=== PATIENT | female | born 1955 | race Caucasian/White ===

== ENCOUNTER 2018-08-28 09:01 | Emergency (ER) | payer BC ==
[2018-08-28 09:11] VITALS: TEMP 98.3; BMI 29.8
--- NOTE | 2018-08-28 09:16 | PDOC ---
History of Present Illness - General Chief Complaint: Chest Pain Stated Complaint: CHEST PRESSURE / PAIN Time Seen by Provider: 08/28/18 09:15 History Source: Patient Exam Limitations: No Limitations - History of Present Illness Initial Comments: Pt is a 63 yo F, with PMHpresenting with complaints of intermittent chest pain since yesterday afternoon. Pt states she has a "squeezing chest pressure" in the middle of her chest while she was walking in the house doing errands yesterday afternoon. The pain radiated to her L shoulder and towards both jaws up her neck. The episode was associated with diaphoresis but no nausea or vomiting. The pain resolved when she was lying down to rest. The pain returned this AM when she was lifting something at work. Pt took no medications prior to arrival, and stopped taking her statin medication 3 weeks ago when she went to and they told the pt her lipid levels were normal. Pt also endorses orthopnea over the past month, and she wakes up during the night having to prop herself up on pillows. Pt denies any recent fevers/chills, headache, vision changes, syncope, palpitations, nausea/vomiting, abdominal pain, urinary symptoms, diarrhea/constipation, or leg swelling. Social: Pt denies any cigarette, alcohol, or drug use. Flight to 3 weeks ago, no other sick contacts. Surgical: no relevant history. Family: no relevant history. 08/28/18 13:46 Past History - Travel Traveled outside of the country in the last 30 days: No Close contact w/someone who was outside of country & ill: No - Past Medical History Allergies/Adverse Reactions: Allergies Allergy/AdvReac Type Severity Reaction Status Date / Time aspirin Allergy Verified 10/09/15 14:39 Home Medications: Ambulatory Orders Atorvastatin Ca [Lipitor] 0 mg PO HS 08/28/18 Levothyroxine Sodium [Synthroid] 0 mcg PO DAILY 08/28/18 COPD: No Hypercholesterolemia: Yes Thyroid Disease: Yes Other medical history: SCOLIOSIS - Surgical History GI Surgery: No - Suicide/Smoking/Psychosocial Hx Smoking Status: No Smoking History: Never smoked Have you smoked in the past 12 months: No Number of Cigarettes Smoked Daily: 0 Information on smoking cessation initiated: No Hx Alcohol Use: No Drug/Substance Use Hx: No Review of Systems - Review of Systems Able to Perform ROS?: Yes Is the patient limited Georgian proficient: No Constitutional: Yes: Weight Stable. No: Chills, Diaphoresis, Fever, Loss of Appetite, Malaise HEENTM: No: Blurred Vision, Double Vision, Nose Pain, Nose Congestion, Throat Pain, Difficulty Swallowing Respiratory: Yes: Orthopnea, Shortness of Breath, SOB with Exertion. No: Cough , SOB at Rest, Wheezing, Productive cough, Hemoptysis Cardiac (ROS): Yes: See HPI, Chest Pain. No: Edema, Irregular Heart Rate, Lightheadedness, Palpitations, Syncope, Chest Tightness ABD/GI: No: Constipated, Diarrhea, Nausea, Poor Appetite, Poor Fluid Intake, Vomiting, Indigestion, Abdominal cramping : No: Burning, Dysuria, Pain, Urgency Musculoskeletal: No: Back Pain, Joint Pain Integumentary: Yes: Sweating (diaphoresis associated with chest pain). No: Rash Neurological: No: Headache, Numbness, Paresthesia, Weakness, Unsteady Gait, Dizziness Psychiatric: No: Sleep Pattern Change, Change in Appetite Endocrine: No: Increased Urine, Change in Weight Hematologic/Lymphatic: No: Anemia, Blood Clots, Easy Bleeding, Easy Bruising All Other Systems: Reviewed and Negative *Physical Exam - Vital Signs Last Vital Signs Temp Pulse Resp BP Pulse Ox 98.3 F 66 16 133/82 97 08/28/18 09:09 08/28/18 09:09 08/28/18 09:09 08/28/18 09:09 08/28/18 09:09 - Physical Exam Comments: Vitals stable, pt afebrile, O2 97% on RA. Pt in NAD, normal body habitus. Pt alert and oriented x3. precinct captain generally intact, muscular strength and sensation intact. Head normocephalic, atraumatic. Eyes PERRLA, EOMI. Oropharynx without erythema or exudates, no LAD b/l. No nasal congestion, hearing intact. Clear heart sounds, S1/S2, no JVD, b/l pedal edema, or heart murmur. No reproducible chest wall tenderness on exam. Clear lung sounds, no respiratory distress, wheezes, crackles, or accessory muscle use. No abdominal or CVA tenderness to palpation, no rebound, no guarding. Abdomen soft, non-distended, and with normoactive bowel sounds. Skin without jaundice or rash. 08/28/18 09:20 Heart Score/ECG Review - History History: Highly suspicious - Electrocardiogram EKG: Normal - Age Age: 45-65 - Risk Factors Risk Factors Heart Score: Yes Hx Hypercholesterolemia Based on the list above the patient has:: 1-2 risk factors - Troponin Troponin: 1-3x normal limit - Score Heart Score - Total: 5 ED Treatment Course - LABORATORY CBC & Chemistry Diagram: 08/28/18 09:50 08/28/18 09:50 Medical Decision Making - Critical Care Time Total Critical Care Time (minutes): 45 (N-stemi, heparin) Critical Care Statement: The care of this patient involved high complexity decision making to prevent further life threatening deterioration of the patient 's condition and/or to evaluate & treat vital organ system(s) failure or risk of failure. - Medical Decision Making Pt was seen at bedside, also will be seen by attending Dr. Chavira. Pt presenting with complaints of intermittent chest pain since yesterday afternoon. Pt states she has a "squeezing chest pressure" in the middle of her chest while she was walking in the house doing errands yesterday afternoon. The pain radiated to her L shoulder and towards both jaws up her neck. The episode was associated with diaphoresis but no nausea or vomiting. The pain resolved when she was lying down to rest. The pain returned this AM when she was lifting something at work. Pt took no medications prior to arrival, and stopped taking her statin medication 3 weeks ago when she went to and they told the pt her lipid levels were normal. Pt also endorses orthopnea over the past month, and she wakes up during the night having to prop herself up on pillows. Pt denies any recent fevers/chills, headache, vision changes, syncope, palpitations, nausea/vomiting, abdominal pain, urinary symptoms, diarrhea/constipation, or leg swelling. Pt traveled from [facility] 3 weeks ago, but has had no recent LE swelling, no estrogen use, and no recent surgeries. Considering stable angina vs ACS vs PE vs pneumonia/bronchitis Ordered work-up including CBC, CMP, coags, D-dimer, cardiac profile, . Pt denying pain control measures at this time. Will continue to reassess pt and monitor for symptomatic improvement. ECG: NSR, intervals WNL (HR 68, NH 152, QRS 82, QTc 399). No TWIs or significant ST segment changes. No prior ECG for comparison. Will send guaic test. Started 325 mg PO aspirin and heparin infusion. Paging Dr. Encarnacion team for admission. Paged [facility] cardio team for consult (Dr. Greco principal research economist). 08/28/18 11:04 Pt having active chest pain in the ER, provided 0.4 mg SL NG. Pt admitted to telemetry under Dr. Encarnacion team. New ECG showed biphasic changes to V2-V4, paged Dr. Greco with ECG information, who suggested transferring to [facility] considering dynamic changes. Pt will be transferred to [facility] cardiology unit under Dr. Greco. 08/28/18 12:06 Chest pain resolved with SL NG. 08/28/18 12:56 Providing 650 mg PO tylenol for headache after NG. Estimated arrival for ACLS team transfer to [facility] is 1415. 08/28/18 13:39 Second troponin elevated from 0.[address] Greco contacted. Pending transport. 08/28/18 13:55 Pt provided 180 mg po brilinta for anti-platelet. EMS team arrived for pt. BP stable 130/80, pt lying comfortably. 08/28/18 14:20 *DC/Admit/Observation/Transfer Diagnosis at time of Disposition: NSTEMI (non-ST elevated myocardial infarction) - Discharge Dispostion Disposition: TRANSFER ACUTE CARE/OTHER HOSP Condition at time of disposition: Stable Decision to Admit order: No - Referrals Referrals: Gustabo Greco MD [Staff Physician] - - Patient Instructions - Post Discharge Activity
--- NOTE | 2018-08-28 09:44 | PDOC ---
Attending Attestation - HPI HPI: 08/28/18 10:34 The patient is a 63 year old female, with a significant past medical history of HLD, who presents to the emergency department with, 2 episodes of midsternal, pressure-like chest pain with associated diaphoresis radiation to the left shoulder and bilateral neck, alleviated with rest. Patient notes her first episode to be yesterday while doing daily home activities and second episode while at work after a stressful situation she attempted to lift a box and symptoms repeated, prompting her arrival to the ED. Patient endorses an associated 1 month of shortness of breath at nighttime. Patients last stress test was approximately 5 years ago. She denies recent fevers, chills, headache or dizziness. She denies recent diarrhea or constipation. She denies recent dysuria, frequency, urgency or hematuria. Allergies: Aspirin. Past surgical history: None reported. Social history: Nonsmoker. Denies EtOH use and recreational drug use. Primary Care Physician: Dr. Encarnacion Documentation prepared by Rabia Szymanski, acting as medical receptionist biller for Kaya Chavira MD. - Medical Decision Making 10:50am Call placed to Dr. 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 11:07am Call placed to [facility], awaiting call back from Dr. Greco. <Rabia Szymanski - Last Filed: 08/28/18 11:06> - Resident Resident Name: SalenaSanaz - ED Attending Attestation I have performed the following: I have examined & evaluated the patient, The case was reviewed & discussed with the resident, I agree w/resident's findings & plan, Exceptions are as noted - Physicial Exam PE: 08/28/18 09:56 awake alert lungs clear bilaterally heart rrr no mrg abd soft nt nd ext wwp no edema. no calf tenderness. alert oriented x 3 - Medical Decision Making 08/28/18 09:57 63 yo F h/o HLD on statin here with /co chest pain. h/o normal stress 5 yrs ago. no fam h/x of cad. no h/o tobacco use. differential angina, chf, anemia, plan labs ekg cxr trop. saritha ovalle require admission for r/o acs due to suspicious story for acs. 08/28/18 11:37 pt with mild elevated trop, repeat ekg ordered. focused ED ultrasound TTE, indication r/o PE four views of heart obtained, mild rv dilation close to 1:1 of LV no rv hypomotility. overall good contractility no pericardial effusion. impression: mild rv dilation, overall no noted rv hypocontractility. normal lv contractility. no pericardial effusion bilat lower ext doppler indication: recent travel, positive trop r/o pe bilat legs scanned from common femoral v loretta past bifurcation into superficial and deep femoral vein. popliteal v. scanned bilaterally past trifucation. no visible throbmus, full compressibility at all sites. impression: no proximal DVT bilat lower extremeties. recommend repeat in 5 - 7 days. d/w cardiology re/ positive troponin. pt started on heparain with bolus. given asa. 08/28/18 12:14 repeat ekg with concerns for dynamic changes, wells type biphasic t waves in septal leads. pt developed recurrent chest pain. d/w heel breaster. Gustabo Gomez. ekg faxed. agrees with transfer to [facility]. <Kaya Chavira - Last Filed: 08/28/18 12:15> Heart Score/ECG Review - History History: Highly suspicious - Electrocardiogram EKG: Normal - Risk Factors Risk Factors Heart Score: Yes Hx Hypercholesterolemia #1 General ECG Interpretation: Sinus Rhythm (68), Normal Rate, Normal Intervals, No acute ischemic changes <Kaya Chavira - Last Filed: 08/28/18 12:15>
[2018-08-28 10:14] LABS: BASO % 1.2 % (0-2.0); EOS % 2.9 % (0-4.5); HEMATOCRIT 38.8 % (32.4-45.2); HEMOGLOBIN 13.1 GM/dL (10.7-15.3); LYMPH % 29.1 % (8-40); MCH 28.5 pg (25.7-33.7); MCHC 33.8 g/dl (32.0-36.0); MEAN CELL VOLUME 84.6 fl (80-96); MEAN PLT VOLUME 8.3 fl (7.5-11.1); MONO % 10.4 % (3.8-10.2); NEUT % 56.4 % (42.8-82.8); PLATELET COUNT 356 K/MM3 (134-434); RBC 4.59 M/mm3 (3.60-5.2); RDW 13.7 % (11.6-15.6)
[2018-08-28 10:25] LABS: INR 1.1 (0.83-1.09)
[2018-08-28 10:41] LABS: ALBUMIN 3.7 g/dl (3.4-5.0); ALK PHOS 63 U/L (45-117); ANION GAP 4 MMOL/L (8-16); BILIRUBIN,TOTAL 0.2 mg/dL (0.2-1); BLOOD UREA NITROGEN 18 mg/dL (7-18); CALCIUM 9.1 mg/dL (8.5-10.1); CHLORIDE 107 mmol/L (98-107); CO2 29 mmol/L (21-32); GLUCOSE,RANDOM 88 mg/dL (74-106); N-TERMINAL BNP 221.1 pg/ml (5-125); POTASSIUM 4.3 mmol/L (3.5-5.1); SGOT/AST 21 U/L (15-37); SGPT/ALT 20 U/L (13-61); SODIUM 140 mmol/L (136-145); TOT PROT 7.1 g/dl (6.4-8.2)
[2018-08-28] MEDS ORDERED: ASPIRIN 325 MG TABLET PO ONE (10:44)
[2018-08-28] MEDS ORDERED: ASPIRIN 325 MG TABLET ONE (10:48)
[2018-08-28] MEDS ORDERED: HEPARIN NA (PORCINE) 5,000 UNITS/ML 1ML VIAL IVPUSH PRN ×2 (10:51)
[2018-08-28] MEDS ORDERED: HEPARIN IV SCH (11:00)
[2018-08-28] MEDS ORDERED: HEPARIN NA (PORCINE) 5,000 UNITS/ML 1ML VIAL ONE (11:00)
[2018-08-28] MEDS ORDERED: HEPARIN INFUSION - 25,000 UNITS/500 ML INFUS.BAG IVPB ONE (11:00)
[2018-08-28] MEDS ORDERED: SODIUM CHLORIDE IV SCH (11:00)
[2018-08-28] MEDS ORDERED: NITROGLYCERIN SUBLINGUAL 1/150 0.4 MG TAB SL PRN (11:50)
[2018-08-28] MEDS ORDERED: ACETAMINOPHEN 325 MG TABLET (FP) PO PRN (11:50)
[2018-08-28] MEDS ORDERED: ACETAMINOPHEN 325 MG TABLET (FP) PO ONE (13:31)
[2018-08-28] MEDS ORDERED: ACETAMINOPHEN 325 MG TABLET (FP) ONE (13:40)
[2018-08-28 13:44] LABS: MAGNESIUM 2.4 mg/dL (1.8-2.4)
[2018-08-28] MEDS ORDERED: CLOPIDOGREL BISULFATE 300 MG TABLET PO ONE (14:12)
[2018-08-28] MEDS ORDERED: TICAGRELOR 90 MG TABLET PO ONE ×2 (14:15→14:18)
[2018-08-28 14:20] VITALS: BP 130/77; PULSE 75
[2018-08-29] MEDS ORDERED: PANTOPRAZOLE 40 MG TABLET (FP) PO SCH (10:00)
--- NOTE | 2018-08-30 10:35 | EKG ---
Test Reason : Blood Pressure : / mmHG Vent. Rate : 058 BPM Atrial Rate : 058 BPM P-R Int : 158 ms QRS Dur : 084 ms QT Int : 440 ms P-R-T Axes : 032 023 055 degrees QTc Int : 431 ms SINUS BRADYCARDIA NONSPECIFIC T WAVE ABNORMALITY ABNORMAL ECG NO PREVIOUS ECGS AVAILABLE Confirmed by EVERETT CHICAS MD ([id number]) on 08/30/2018 10:35:14 AM Referred By: Confirmed By:EVERETT CHICAS MD
--- NOTE | 2018-08-30 10:36 | EKG ---
Test Reason : Blood Pressure : / mmHG Vent. Rate : 066 BPM Atrial Rate : 066 BPM P-R Int : 166 ms QRS Dur : 082 ms QT Int : 422 ms P-R-T Axes : 058 016 046 degrees QTc Int : 442 ms NORMAL SINUS RHYTHM NONSPECIFIC ST AND T WAVE ABNORMALITY WHEN COMPARED WITH ECG OF 28-AUG-2018 11:29, NO SIGNIFICANT CHANGE WAS FOUND Confirmed by LIV MALDONADO MD ([id number]) on 08/30/2018 10:36:43 AM Referred By: Confirmed By:LIV MALDONADO MD
--- NOTE | 2018-08-30 10:39 | EKG ---
Test Reason : Blood Pressure : / mmHG Vent. Rate : 068 BPM Atrial Rate : 068 BPM P-R Int : 152 ms QRS Dur : 082 ms QT Int : 376 ms P-R-T Axes : 059 040 048 degrees QTc Int : 399 ms NORMAL SINUS RHYTHM POSSIBLE LEFT ATRIAL ENLARGEMENT NONSPECIFIC ST ABNORMALITY BORDERLINE ECG NO PREVIOUS ECGS AVAILABLE Confirmed by LIV MALDONADO MD ([id number]) on 08/30/2018 10:39:08 AM Referred By: Confirmed By:LIV MALDONADO MD
== END 2018-08-28 14:36 | disposition short-term general hospital (02) ==
LOC: JER 09:01 → UNDOADMIN 10:52 → JERBED 10:52 → JER 14:36
PROC: 3E033GC Introduction of Other Therapeutic Substance into Peripheral Vein, Percutaneous Approach (ICD-10-PCS; principal; 2018-08-28)
PROC: 3E033GC Introduction of Other Therapeutic Substance into Peripheral Vein, Percutaneous Approach (ICD-10-PCS; 2018-08-28)
PROC: B246ZZZ Ultrasonography of Right and Left Heart (ICD-10-PCS; 2018-08-28)
PROC: B54DZZZ Ultrasonography of Bilateral Lower Extremity Veins (ICD-10-PCS; 2018-08-28)
DX: I21.4 Non-ST elevation (NSTEMI) myocardial infarction (principal); E78.00 Pure hypercholesterolemia, unspecified; E03.9 Hypothyroidism, unspecified
CPT/HCPCS: 36415; 71046-TC-FY; 80053; 80061; 82550; 82553; 83721; 83735; 83880; 84484; 85025; 85379; 85610; 85730; 93005; 93010; 99285-25; J1644

== ENCOUNTER 2019-06-03 18:30 | Emergency (ER) | payer BC ==
--- NOTE | 2019-06-03 18:39 | PDOC ---
Rapid Medical Evaluation Time Seen by Provider: 06/03/19 18:39 Medical Evaluation: Allergies Allergy/AdvReac Type Severity Reaction Status Date / Time aspirin Allergy Verified 06/03/19 18:39 06/03/19 18:39 I have performed a brief in-person evaluation of this patient. The patient presents with a chief complaint of: Dizziness w/ nausea x 2 days. S/ p recent URI. No visual changes, n/v, focal weakness, CP or SOB. H/o HLD CAD, AL , stents x 2 at [place] Pertinent physical exam findings:Stable and in NAD I have ordered the following:ekg/labs The patient will proceed to the ED for further evaluation Discharge Disposition - Diagnosis Dizziness - Referrals - Patient Instructions - Post Discharge Activity
[2019-06-03 18:44] VITALS: BP 109/68; PULSE 65; TEMP 97.9; BMI 25.7
[2019-06-03 19:39] LABS: BASO % 0.7 % (0-2.0); EOS % 0.7 % (0-4.5); HEMATOCRIT 39.2 % (32.4-45.2); HEMOGLOBIN 13.1 GM/dL (10.7-15.3); LYMPH % 15.8 % (8-40); MCH 28.4 pg (25.7-33.7); MCHC 33.4 g/dl (32.0-36.0); MEAN PLT VOLUME 8.6 fl (7.5-11.1); MONO % 5.1 % (3.8-10.2); NEUT % 77.7 % (42.8-82.8); PLATELET COUNT 345 K/MM3 (134-434); RBC 4.62 M/mm3 (3.60-5.2); RDW 14.1 % (11.6-15.6); WHITE BLOOD COUNT 7.2 K/mm3 (4.0-10.0)
[2019-06-03 20:14] LABS: ALBUMIN 3.6 g/dl (3.4-5.0); ALK PHOS 136 U/L (45-117); ANION GAP 4 MMOL/L (8-16); BILIRUBIN,TOTAL 0.6 mg/dL (0.2-1); BLOOD UREA NITROGEN 17.6 mg/dL (7-18); CALCIUM 9.4 mg/dL (8.5-10.1); CHLORIDE 108 mmol/L (98-107); CO2 28 mmol/L (21-32); GLUCOSE,RANDOM 138 mg/dL (74-106); POTASSIUM 4.1 mmol/L (3.5-5.1); SGOT/AST 31 U/L (15-37); SGPT/ALT 54 U/L (13-61); SODIUM 140 mmol/L (136-145)
--- NOTE | 2019-06-04 13:16 | EKG ---
Test Reason : Blood Pressure : / mmHG Vent. Rate : 056 BPM Atrial Rate : 056 BPM P-R Int : 144 ms QRS Dur : 082 ms QT Int : 432 ms P-R-T Axes : 058 092 109 degrees QTc Int : 416 ms SINUS BRADYCARDIA RIGHTWARD AXIS LOW VOLTAGE QRS BORDERLINE ECG WHEN COMPARED WITH ECG OF 28-AUG-2018 11:56, QUESTIONABLE CHANGE IN QRS AXIS NONSPECIFIC T WAVE ABNORMALITY, WORSE IN LATERAL LEADS Confirmed by JUAN FRANCISCO HENDRIX, EVERETT ([id number]) on 06/04/2019 1:15:51 PM Referred By: Confirmed By:EVERETT CHICAS MD
== END 2019-06-03 21:00 | disposition left against medical advice (07) ==
LOC: JER 18:30
DX: R42 Dizziness and giddiness (principal)
CPT/HCPCS: 36415; 80053; 82550; 84484; 85025; 93005; 93010; 99282-25

== ENCOUNTER 2020-05-25 09:42 | Emergency (ER) | payer BC, OTHER ==
[2020-05-25 09:51] VITALS: BP 128/82; PULSE 77; TEMP 97.9; BMI 27.4
== END 2020-05-25 11:02 | disposition home or self-care (01) ==
LOC: JER 09:42
DX: Z11.52 Encounter for screening for COVID-19 (principal); R05 Cough
CPT/HCPCS: 87804; 99283-25; C9803; U0003

== ENCOUNTER 2021-12-08 13:26 | Emergency (ER) | payer OTHER ==
[2021-12-08 13:38] VITALS: BP 126/82; PULSE 72; RESP 18; TEMP 98; BMI 29.2
[2021-12-08] MEDS ORDERED: ACETAMINOPHEN 1000 MG/100 ML BAG IVPB ONE (14:20)
[2021-12-08] MEDS ORDERED: SODIUM CHLORIDE 1,000 ML IV STA (14:20)
[2021-12-08] MEDS ORDERED: ACETAMINOPHEN INJECTION 100 ML IVPB ONE (14:32)
[2021-12-08 14:43] LABS: BASO % 1.4 % (0-2.0); EOS % 2.3 % (0-4.5); HEMATOCRIT 40.4 % (32.4-45.2); HEMOGLOBIN 13.7 GM/dL (10.7-15.3); LYMPH % 41.2 % (8-40); MCH 29.2 pg (25.7-33.7); MCHC 33.8 g/dl (32.0-36.0); MEAN CELL VOLUME 86.4 fl (80-96); MEAN PLT VOLUME 8.3 fl (7.5-11.1); NEUT % 44.1 % (42.8-82.8); PLATELET COUNT 266 10^3/uL (134-434); RBC 4.68 M/mm3 (3.60-5.2); WHITE BLOOD COUNT 4.9 K/mm3 (4.0-10.0)
[2021-12-08 14:49] LABS: EPI CELLS 3 /uL (0-25.1); HYALINE CASTS 0 /uL (0-3.1); PH,URINE 6.5 (5.0-8.0); URINE APPEARANCE CLEAR; URINE BACTERIA 9 /uL (0-1359); URINE BILIRUBIN NEGATIVE (NEGATIVE); URINE COLOR YELLOW; URINE GLUCOSE (UA) NEGATIVE (NEGATIVE); URINE KETONE NEGATIVE (NEGATIVE); URINE LEUK ESTERASE TRACE (NEGATIVE); URINE NITRITE NEGATIVE (NEGATIVE); URINE PROTEIN TRACE (NEGATIVE); URINE RBC 871 /uL (0-23.9); URINE WBC 9 /uL (0-25.8)
[2021-12-08 15:13] LABS: CALCIUM 9.3 mg/dL (8.5-10.1)
[2021-12-08 15:14] LABS: ALBUMIN 3.8 g/dl (3.4-5.0); BLOOD UREA NITROGEN 16.9 mg/dL (7-18)
[2021-12-08 15:16] LABS: CREATININE 1.1 mg/dL (0.55-1.3)
[2021-12-08 15:18] LABS: BILIRUBIN,TOTAL 0.6 mg/dL (0.2-1); TOT PROT 7.8 g/dl (6.4-8.2)
== END 2021-12-08 16:14 | disposition home or self-care (01) ==
LOC: JER 13:26
PROC: 3E0333Z Introduction of Anti-inflammatory into Peripheral Vein, Percutaneous Approach (ICD-10-PCS; principal; 2021-12-08)
PROC: 3E0337Z Introduction of Electrolytic and Water Balance Substance into Peripheral Vein, Percutaneous Approach (ICD-10-PCS; 2021-12-08)
DX: N20.0 Calculus of kidney (principal)
CPT/HCPCS: 36415; 73521-TC-FY; 74176-TC; 80053; 81003; 83690; 85025; 87086; 99285-25